=== PATIENT | male | born 1985 | race Caucasian/White ===

== ENCOUNTER 2018-08-19 00:05 | Emergency (ER) | payer MEDICAID ==
[~2018-08-19] VITALS: Ht 170.2 cm; Wt 136.4 kg
[2018-08-19 00:20] VITALS: BP 198/120
== END 2018-08-19 01:24 | disposition left against medical advice (07) ==
LOC: EMS 00:12
DX: K08.89 Other specified disorders of teeth and supporting structures (principal); R68.84 Jaw pain; Z53.21 Procedure and treatment not carried out due to patient leaving prior to being seen by health care provider